=== PATIENT | male | born 1955 | race Hispanic/Latino ===

== ENCOUNTER 2020-01-08 10:57 | Outpatient (CLI) | payer OTHER ==
--- NOTE | 2020-01-08 11:36 | XRay Report ---
CHEST 2 VIEWS INDICATION / CLINICAL INFORMATION: SOB. COMPARISON: None available. FINDINGS: SUPPORT DEVICES: Left subclavian pacemaker/ICD leads HEART / MEDIASTINUM: Sternotomy and CABG. Heart is normal in size. LUNGS / PLEURA: No significant pulmonary or pleural abnormality. No pneumothorax. ADDITIONAL FINDINGS: No significant additional findings. IMPRESSION: 1. No acute findings. Signer Name: Santhosh Castorena MD Signed: 01/08/2020 11:32 AM Workstation Name: [id number]
== END 2020-01-08 10:58 | disposition home or self-care (01) ==
LOC: XRAY 10:57
PROVIDERS: ATTEND Internal Medicine
DX: R06.02 Shortness of breath (principal); Z95.1 Presence of aortocoronary bypass graft
CPT/HCPCS: 71046